=== PATIENT | female | born 1995 | race Two or more races ===

== ENCOUNTER → 2017-05-19 | Outpatient (CLI) | payer OTHER ==
[~2017-05-19] MED LIST: ALLEGRA ALLERGY60 MG; CATAFLAM 50 MG PO; CEFTIN250 MG PO; KETOCONAZOLE200 MG; LOTRISONE CREAM45 GM TOP; MUPIROCIN15 GM TOP; NYSTATIN-TRIAMC15 GM; PEPCID40 MG PO; SYNTHROID88 MCG; SYNTHROID88 MCG PO; ZOFRAN ODT8 MG/UDTAB PO; ZYRTEC10 MG PO
== END | disposition home or self-care (01) ==
LOC: PPHC LAB 14:57
DX: Z02.0 Encounter for examination for admission to educational institution (principal)

== ENCOUNTER 2017-10-02 08:11 | Outpatient (CLI) | payer OTHER | END 2017-10-02 08:18 | disposition home or self-care (01) | LOC: LAB 08:11 | DX: E03.8 Other specified hypothyroidism (principal); Z11.3 Encounter for screening for infections with a predominantly sexual mode of transmission; Z11.1 Encounter for screening for respiratory tuberculosis ==

== ENCOUNTER 2017-10-24 10:47 | Outpatient (CLI) | payer OTHER | END 2017-10-24 10:51 | disposition home or self-care (01) | LOC: SONOGRAMA 10:47 | DX: E03.8 Other specified hypothyroidism (principal); E04.1 Nontoxic single thyroid nodule ==

== ENCOUNTER 2017-12-18 16:35 | Outpatient (CLI) | payer OTHER | END 2017-12-18 16:47 | disposition home or self-care (01) | LOC: LAB 16:35 | DX: Z11.3 Encounter for screening for infections with a predominantly sexual mode of transmission (principal) ==

== ENCOUNTER 2018-11-27 10:58 | Outpatient (CLI) | payer OTHER | END 2018-11-27 12:22 | disposition home or self-care (01) | LOC: LAB 10:58 | DX: Z11.3 Encounter for screening for infections with a predominantly sexual mode of transmission (principal); E78.49 Other hyperlipidemia; E03.8 Other specified hypothyroidism; Z00.00 Encounter for general adult medical examination without abnormal findings ==

== ENCOUNTER 2019-04-05 06:46 | Emergency (ER) | payer OTHER ==
[~2019-04-05] VITALS: Ht 172.7 cm; Wt 90.7 kg
[2019-04-05] MEDS ORDERED: ZITHROMAX500 MG PO (10:52)
[2019-04-05] MEDS ORDERED: DOLOGESIC-DF 51 EACH PO (10:52)
== END 2019-04-05 11:12 | disposition home or self-care (01) ==
LOC: ER 06:46
DX: H92.01 Otalgia, right ear (principal); R09.81 Nasal congestion; B96.0 Mycoplasma pneumoniae [M. pneumoniae] as the cause of diseases classified elsewhere

== ENCOUNTER 2019-04-09 08:59 | Emergency (ER) | payer OTHER ==
[~2019-04-09] VITALS: Ht 167.6 cm; Wt 90.7 kg
[~2019-04-09 08:59] MED LIST changes: +DOLOGESIC-DF 51 EACH PO; +ZITHROMAX500 MG PO
== END 2019-04-09 11:25 | disposition home or self-care (01) ==
LOC: ER 08:59
DX: H66.91 Otitis media, unspecified, right ear (principal)

== ENCOUNTER 2020-01-27 06:36 | Emergency (ER) | payer OTHER ==
[~2020-01-27] VITALS: Ht 172.7 cm; Wt 90.7 kg
[2020-01-27] MEDS ORDERED: CIPRODEX OTIC7.5 ML OT (11:04)
[2020-01-27] MEDS ORDERED: ZITHROMAX500 MG PO (11:04)
== END 2020-01-27 12:35 | disposition home or self-care (01) ==
LOC: ER 06:36
DX: H60.8X2 Other otitis externa, left ear (principal); H66.93 Otitis media, unspecified, bilateral; B96.0 Mycoplasma pneumoniae [M. pneumoniae] as the cause of diseases classified elsewhere; Z03.818 Encounter for observation for suspected exposure to other biological agents ruled out

== ENCOUNTER → 2020-06-08 09:30 | Outpatient (CLI) | payer OTHER ==
[~2020-06-08 09:30] MED LIST changes: +CIPRODEX OTIC7.5 ML OT
== END | disposition home or self-care (01) ==
LOC: LAB 09:30
PROVIDERS: ATTEND Internal Medicine Cardiovascular Disease
DX: I10 Essential (primary) hypertension (principal); E11.9 Type 2 diabetes mellitus without complications; E03.8 Other specified hypothyroidism; E78.2 Mixed hyperlipidemia; Z12.11 Encounter for screening for malignant neoplasm of colon; E55.9 Vitamin D deficiency, unspecified; N80.8 Other endometriosis

== ENCOUNTER 2020-06-08 11:01 | Outpatient (CLI) | payer OTHER | END 2020-06-08 14:34 | disposition home or self-care (01) | LOC: RAD 11:01 → MAMO-SONO 06-16 13:15 | PROVIDERS: ATTEND Internal Medicine Cardiovascular Disease | DX: R10.9 Unspecified abdominal pain (principal) ==

== ENCOUNTER 2020-06-16 14:03 | Outpatient (CLI) | payer OTHER | END 2020-06-16 14:10 | disposition home or self-care (01) | LOC: SONOGRAMA 14:03 | PROVIDERS: ATTEND Internal Medicine Cardiovascular Disease | DX: E03.8 Other specified hypothyroidism (principal) ==

== ENCOUNTER 2022-07-05 18:34 | Emergency (ER) | payer OTHER ==
[~2022-07-05] VITALS: Ht 172.7 cm; Wt 93.4 kg
== END 2022-07-05 23:25 | disposition home or self-care (01) ==
LOC: ER 18:34
DX: K29.70 Gastritis, unspecified, without bleeding (principal); Z88.8 Allergy status to other drugs, medicaments and biological substances

== ENCOUNTER 2024-06-24 09:33 | Outpatient (CLI) | payer OTHER | END 2024-06-24 09:42 | disposition home or self-care (01) | LOC: SONOGRAMA 09:33 | PROVIDERS: ATTEND Internal Medicine Endocrinology, Diabetes & Metabolism | DX: E04.1 Nontoxic single thyroid nodule (principal) ==